=== PATIENT | female | born 1970 | race Caucasian/White ===

== ENCOUNTER 2018-09-28 02:19 | Inpatient (IN) | payer BC ==
[~2018-09-28] VITALS: Ht 177.8 cm; Wt 98.4 kg
[2018-09-28] VITALS (13 sets, daily range): BP systolic 91–142; BP diastolic 51–127
[2018-09-28] MEDS ORDERED: LIDOCAINE 2% IV 100 MG/5ML SYR ONE (10:13)
[2018-09-28] MEDS ORDERED: ROPIVACAINE 0.5% 20 ML VIAL ONE (12:40)
[2018-09-28] MEDS ORDERED: DEXAMETHASONE SOD PHOS 10MG/ML ONE (12:42)
[2018-09-28] MEDS ORDERED: DEXAMETHASONE SOD 4 MG/ML VIAL ONE (12:44)
[2018-09-28] MEDS ORDERED: fentaNYL CITR 250 MCG/5 ML AMP ONE (12:45)
[2018-09-28] MEDS ORDERED: PROPOFOL EMUL(*) 10MG/ML 20 ML 20 ML ONE (12:45)
[2018-09-28] MEDS ORDERED: NORMOSOL R SOLN(*) 1000 ML BAG 1,000 ML IV PRN ×2 (13:00→16:55)
[2018-09-28] MEDS ORDERED: ACETAMINOPHEN 500 MG TAB PO ONE (13:00)
[2018-09-28] MEDS ORDERED: TRANEXAMIC AC 1000 MG/10ML SDV 1,000 MG in DEXTROSE 5% 50 ML BAG 50 ML IV ONE (13:00)
[2018-09-28] MEDS ORDERED: LIDOCAINE/SOD BICARB 8.4% SYR ID ONE (13:00)
[2018-09-28] MEDS ORDERED: CELECOXIB 200 MG CAP PO ONE (13:00)
[2018-09-28] MEDS ORDERED: PREGABALIN 150 MG CAPSULE PO ONE (13:00)
[2018-09-28] MEDS ORDERED: ceFAZolin(*) 2GM/D5W 50ML 50 ML IVPB ONE (13:00)
[2018-09-28] MEDS ORDERED: FAMOTIDINE 20 MG TAB PO ONE (13:00)
[2018-09-28] MEDS ORDERED: MIDAZOLAM 2 MG/2 ML VIAL IVP PRN (13:00)
[2018-09-28] MEDS ORDERED: ROPIVACAINE 0.2% 400 MG/200ML 250 ML CONINFUS ONE (13:00)
[2018-09-28] MEDS ORDERED: ROPIVACAINE/EPI/CLONIDINE/KET 50 ML SYRINGE INJ ONE (13:00)
[2018-09-28] MEDS ORDERED: KETAMINE HCL 200 MG/20 ML MDV ONE ×2 (14:36→16:05)
[2018-09-28] MEDS ORDERED: fentaNYL CITR 100 MCG/2 ML AMP ONE (15:08)
[2018-09-28] MEDS ORDERED: LACTATED RINGER 3000 ML BAG IR ONE (15:30)
[2018-09-28] MEDS ORDERED: NS 0.9% IRRIGATION 1000ML PLCT IR ONE (15:30)
[2018-09-28] MEDS ORDERED: oxyCODONE HCL 5 MG CAP PO PRN (16:55)
[2018-09-28] MEDS ORDERED: MORPHINE 4 MG/ML SDV IVP PRN (16:55)
[2018-09-28] MEDS ORDERED: FLUSH 10 ML SYR IVP PRN (16:55)
[2018-09-28] MEDS ORDERED: ONDANSETRON 4 MG/2 ML VIAL IVP PRN (16:55)
[2018-09-28] MEDS ORDERED: MAGNESIUM HYDROXIDE* 30ML UDCP PO PRN (16:55)
[2018-09-28] MEDS ORDERED: ZOLPIDEM TARTRATE 5 MG TAB PO PRN (16:55)
[2018-09-28] MEDS ORDERED: BISACODYL 10 MG SUPP PR PRN (16:55)
[2018-09-28] MEDS ORDERED: PROMETHAZINE 25 MG/ML 1 ML AMP IVP PRN (16:55)
[2018-09-28] MEDS ORDERED: traMADol 50 MG TAB PO PRN (16:55)
[2018-09-28] MEDS ORDERED: KET10 PO (17:42)
[2018-09-28] MEDS ORDERED: TRAM-420 PO (17:44)
[2018-09-28] MEDS ORDERED: OXYC5CAP21 PO (17:45)
--- NOTE | 2018-09-28 17:53 | RADIOLOGY IMAGING REPORT ---
FACILITY: [facility] - [place] PATIENT NAME: Bridget Vital : 1970 MR: [id number] V: [id number] EXAM DATE: ORDERING PHYSICIAN: EDDIE DYKES TECHNOLOGIST: Location: [facility] Patient: Bridget Vital : 1970 Visit/Account:[id number] Date of Sevice: 09/28/2018 Exam type: KNEE LIMITED RIGHT History: S/P R TKA Comparison: None. Findings: AP and crosstable lateral views of the right knee demonstrate a right knee arthroplasty in good anato shalini alignment. Soft tissue gas projects over the anterior aspect of this postoperative knee IMPRESSION: 1. As above Report Dictated By: Tiana Soto MD at 09/28/2018 5:49 PM Report E-Signed By: Tiana Soto MD at 09/28/2018 5:50 PM WSN:[email or web address]
--- NOTE | 2018-09-28 17:57 | Hospitalist Progress Note ---
Subjective Progress Notes Subjective Patient seen post-operatively. Reviewed PMHx (no significant medical problems) and medications (none). At present she reports doing well. No CP/SOB/N/V. Pain has been well controlled so far. Physical Exam Vital Signs Date Time Temp Pulse Resp B/P (MAP) Pulse Ox O2 Delivery O2 Flow Rate FiO2 09/28/18 17:37 98.0 70 16 109/60 (76) Nasal Cannula 2.0 09/28/18 17:26 99 General Appearance: Alert, Awake Cardiovascular: Regular Rate and Rhythm Respiratory: Clear to Auscultation Assessment and Plan Problems: (1) S/P knee replacement Status: Acute Assessment & Plan: She appears stable post-op. No history of DVT/PE. She will be on aspirin for prophylaxis. YVON BAER MD Sep 28, 2018 17:57
[2018-09-28] MEDS: ACETAMINOPHEN 500 MG TAB PO SCH (18:22)
[2018-09-28] MEDS ORDERED: ASPIRIN 325 MG TAB PO ONE (21:00)
[2018-09-28] MEDS: ceFAZolin(*) 2GM/D5W 50ML 50 ML IVPB SCH (23:13)
[2018-09-28] MEDS ORDERED: NS(*) 0.9% 500 ML BAG 500 ML ONE (23:15)
[2018-09-29] VITALS (7 sets, daily range): BP systolic 95–133; BP diastolic 62–79; Ht 177.8 cm; Wt 98.4 kg
[2018-09-29] MEDS: ACETAMINOPHEN 500 MG TAB PO SCH ×3 (00:34→17:30)
--- NOTE | 2018-09-29 04:04 | OPERATIVE REPORT 1 ---
EVENT DATE: September 28, 2018 SURGEON: Quang Heck MD ANESTHESIOLOGIST: Jamil Carrillo MD ANESTHESIA: Right indwelling adductor canal block, followed by general anesthesia. FURNACE MECHANIC: STEVE Pimentel PREOPERATIVE DIAGNOSIS Right knee degenerative joint disease, status post anterior cruciate ligament reconstruction in 1984, with flexion contracture. POSTOPERATIVE DIAGNOSIS Right knee degenerative joint disease, status post anterior cruciate ligament reconstruction in 1984, with flexion contracture and significant scarring posterolaterally and posteriorly. PROCEDURE PERFORMED Right total knee arthroplasty. IMPLANTS MicroPort Medial-Pivot CS system with a 6 femur, 5 tibia, 12 mm CS insert, 8 x 35 symmetric patella, femur cut 6 degrees valgus, 10 mm. We also utilized two packages of DonJoy [place] Blue cement and ZipLine Wound Closure System and our standard ropivacaine/Toradol cocktail, 50 mL. SPECIMENS None. COMPLICATIONS None. BLOOD LOSS Less than 200 mL. DESCRIPTION OF PROCEDURE Patient received appropriate preoperative antibiotic, was brought to the OR, where Dr. Carrillo performed right adductor canal block followed by general anesthesia. Right thigh tourniquet was placed but was not utilized. Right lower extremity was prepped and draped in the usual sterile fashion. We made a midline incision followed by a medial parapatellar arthrotomy. We noted significant anteromedial osteophytic reaction off the tibial plateau and just lateral to this, in the anterior aspect of the lateral tibial plateau. Significant osteophytes were noted around the distal femur and trochlea and in the notch. Reconstructed ACL was absent. We noted significant scar tissue over the medial region. After the medial parapatellar arthrotomy, we dissected subperiosteally on the medial tibial plateau to the level of the semimembranosus insertion and noted very thickened tissue in this region. Significant fat pad scarring had occurred to the notch, and the fat pad was excised, patella released, and significant spurs here were also removed by rongeur. Significant scarring in the gutter was noted, and thickening in this region, and this region was released. Patella was everted, knee brought up into hyperflexion, and remaining articular cartilage was removed from the distal femoral condyles by sagittal saw. The PCL was released subperiosteally by Bovie. Step-cut drill was utilized to broach the distal femoral canal. We placed our intramedullary femoral guide, setting our cutting block up at 6 degrees valgus, 10 mm. Cut was made with care taken to protect the soft tissues. A 3-degree external rotation guide and sizer was then placed, referencing off the anterior flange, epicondyles and posterior condyles, and 3-degree external rotation holes were drilled. We sized the femur to a 6. A 4-in-1 cutting block was then placed, and we placed our Z-retractors to protect the soft tissue, and we made our four cuts. We then brought the tibia anteriorly on the femur with appropriate retractors. Step-cut drills were utilized to broach the tibial canal. We then placed our intramedullary tibial guide and, referencing 4 mm off the significant slope and loss of articular cartilage on the lateral tibial plateau, and referencing from rotation, we pinned our block into place, placed appropriate retractors and made our cut. We noted that the size was a #5. We removed osteophytes that were further noted posteriorly at the tibial plateau and medially with a rongeur. We noted the ACL tunnel. This was debrided of the soft tissue utilizing rongeur, pickups and Bovie. We then removed the stump of the ACL and PCL as well as the medial and lateral meniscus by Meseret. We removed significant osteophytes posteriorly with a curved osteophyte, elevated the capsule with a Marroquin elevator. We then placed our #5 tibial base plate, referencing 3 degrees rotation, and pinned this in place. We placed a 10 mm insert and placed our femur. As we came up into extension, we noted that it was still fairly tight, so we completely released the insertion of the IT band, but off of Yohana tubercle, we still noted we were tight. The femur and tibial insert were removed. We evaluated the popliteus tendon, and it was significantly calcified and hardened. It was impinging posterolaterally, and this was released carefully by Meseret. We then placed a 12 mm insert and our #5 femur, and we achieved full extension and flexion to 125, limited only by body habitus. She was stable to varus and valgus stress and had a good endpoint at anterior drawer. We brought the knee into full extension. The patella was sized to a depth of 20 mm. We used a 6 mm guide, cutting this down to 14 mm. A peg hole guide was positioned inferiorly and medially. The peg holes were drilled, and this accepted an 8 x 35 trial. We then brought the knee up into flexion, drilled out peg holes for the femur, cut for our trochlear chip, placed this. Again, we had the aforementioned range of motion and stability, and patella tracked well. We then removed the trial patella, femur and tibial insert and placed appropriate retractors to expose the tibial base plate. We placed our keel tower, which was cut, reamed and punched. This instrumentation was then removed. A bone plug was placed in the distal femur, and we brought the knee out to full extension. We copiously irrigated with pulsed lavage while we mixed two packages of DonJoy [place] Blue cement. We then injected 10 mL of our cocktail into the posterior capsule, brought the knee up into appropriate position. Starting at the tibia, we cemented this into place, followed by our 12 mm CS insert, then our #5 femur. Excess cement was removed. The knee was brought out to full extension with axial compression while we cemented the patella. We injected the remaining cocktail into the quad mechanism. After 12- 1/2 minutes, the cement had secured, and again we had the aforementioned range of motion and stability. We copiously irrigated once again, closed the arthrotomy at 30 degrees with #2 Vicryl in [id number] suture fashion, followed by 2-0 Vicryl for the subcutaneous tissues, then, with the knee bent to 45 degrees, our ZipLine Wound Closure System. Dressing was applied. Patient was extubated and taken to Recovery in stable condition. Hospitalist team will be consulted for medical management and anticoagulation, PT for rehab. YANNA
[2018-09-29] MEDS: ceFAZolin(*) 2GM/D5W 50ML 50 ML IVPB SCH ×2 (05:31→14:03)
[2018-09-29] MEDS: ASPIRIN 325 MG TAB PO SCH (08:56)
--- NOTE | 2018-09-29 09:22 | NUR ---
Physical Therapy Impression PT eval and treatment completed. Pt fit with CPM last evening. Pt notes that she has been ambulating to/from BR with nursing as needed and tolerated ambulation x 150' with FWW and CGA in hallway with PT. Pt educated on self progression with flexion on CPM as tolerated. Physical Therapy Goals 1. Pt to be modified indep/SBA with bed mobility and sup<>sit trnsfrs 2. Pt to be modified indep/SBA with sit<>stand trnsfrs 3. Pt to be modified indep with FWW for ambulation x 150' 4. Pt to be SBA/CGA for up/down 4 steps with rail Patient's Goals
[2018-09-29] MEDS ORDERED: HYDROCORTISONE 1% CR 28.35 GM TP PRN (09:55)
--- NOTE | 2018-09-29 10:00 | Hospitalist Progress Note ---
Subjective Progress Notes Subjective She was admitted after knee replacement. She has complaints of rash to left upper arm. She reports she was itching prior to admission, but the blood pressure cuff exacerbated the rash. Patient Complains of: Cardiovascular: No: Chest Pain Respiratory: No: Shortness of Breath Physical Exam Vital Signs Date Time Temp Pulse Resp B/P (MAP) Pulse Ox O2 Delivery O2 Flow Rate FiO2 09/29/18 07:52 98 Nasal Cannula 1.0 09/29/18 07:26 99.0 77 16 107/74 (85) Intake and Output 09/29/18 01:00 Intake Total 1615 ml Output Total 100 ml Balance 1515 ml Intake IV Total 1615 ml Output Estimated Blood Loss 100 ml # Voids 1 General Appearance: Alert, Awake, No Acute Distress, Afebrile Neuro: No Gross deficits Cardiovascular: Regular Rate and Rhythm Respiratory: No Respiratory Distress, Clear to Auscultation GI: Soft and Non-Tender Extremities: Warm, Perfused; No Edema Integumentary: Other (rash to left dorsal upper arm, reddened, appears dry) Psych: Alert & Oriented X3, Appropriate Mood & Affect Assessment and Plan Problems: (1) S/P knee replacement Status: Acute Assessment & Plan: She appears stable post-op. No history of DVT/PE. She will be on aspirin for prophylaxis. (2) Rash Status: Acute Assessment & Plan: She has rash to left upper arm, appears dry and itchy, exacerbated by BP cuff. Will place on Claritin and hydrocortisone cream. Continue to monitor. Exam Sepsis Risk: No Definite Risk Problem Qualifiers (1) S/P knee replacement: Laterality: right Qualified Codes: Z96.651 - Presence of right artificial knee joint PRIMO PATEL Sep 29, 2018 10:00
[2018-09-29] MEDS: LORATADINE 10 MG TAB PO SCH (10:52)
--- NOTE | 2018-09-29 15:25 | NUR ---
Physical Therapy Impression PT goals met with afternoon visit. Pt demos modified indep with functional mobility including ambulation for household distances and up/down 8 steps with rail and SBA/Modified indep. Pt anticipates d/c tomorrow and will schedule with out pt PT services for next week. Out pt clinic of pt's choice requires credit card information in order to hold an appointment time, thus pt will need to make this appointment and has been informed of this. Physical Therapy Goals 1. Pt to be modified indep/SBA with bed mobility and sup<>sit trnsfrs 2. Pt to be modified indep/SBA with sit<>stand trnsfrs 3. Pt to be modified indep with FWW for ambulation x 150' 4. Pt to be SBA/CGA for up/down 4 steps with rail Patient's Goals
[2018-09-29] MEDS: KETOROLAC TROM 10MG TAB PO PRN (23:11)
[2018-09-30] MEDS: ACETAMINOPHEN 500 MG TAB PO SCH ×3 (00:29→15:17)
[2018-09-30 04:31] VITALS: BP 113/73
[2018-09-30] MEDS ORDERED: ASPI-757 PO (07:51)
[2018-09-30 08:44] VITALS: BP 112/74
[2018-09-30] MEDS: ASPIRIN 325 MG TAB PO SCH (08:46)
[2018-09-30] MEDS: LORATADINE 10 MG TAB PO SCH (08:47)
[2018-09-30] MEDS ORDERED: HYDROCORTISONE 1% CR 28.35 GM TP SCH (09:00)
[2018-09-30] MEDS ORDERED: KET10 PO (09:00)
[2018-09-30] MEDS ORDERED: TRAM-420 PO (09:01)
--- NOTE | 2018-09-30 10:40 | Hospitalist Progress Note ---
Subjective Progress Notes Subjective She has complaints of pain to the surgical site. She had no acute events overnight. Patient Complains of: Cardiovascular: No: Chest Pain Respiratory: No: Shortness of Breath Physical Exam Vital Signs Date Time Temp Pulse Resp B/P (MAP) Pulse Ox O2 Delivery O2 Flow Rate FiO2 09/30/18 08:44 99.0 75 16 112/74 (87) 98 Room Air 09/29/18 07:52 1.0 Intake and Output 09/30/18 07:00 Intake Total 440 ml Balance 440 ml Intake Oral 440 ml # Voids 1 General Appearance: Alert, Awake, No Acute Distress, Afebrile Neuro: No Gross deficits Cardiovascular: Regular Rate and Rhythm Respiratory: No Respiratory Distress, Clear to Auscultation GI: Soft and Non-Tender Psych: Alert & Oriented X3, Appropriate Mood & Affect Assessment and Plan Problems: (1) S/P knee replacement Status: Acute Assessment & Plan: She appears stable post-op. No history of DVT/PE. She will be on aspirin for prophylaxis. (2) Rash Status: Acute Assessment & Plan: She has rash to left upper arm, appears dry and itchy, exacerbated by BP cuff. Will place on Claritin and hydrocortisone cream. Continue to monitor. Exam Sepsis Risk: No Definite Risk Problem Qualifiers (1) S/P knee replacement: Laterality: right Qualified Codes: Z96.651 - Presence of right artificial knee joint PRIMO PATELP Sep 30, 2018 10:40
[2018-09-30 14:49] VITALS: BP 112/68
[2018-09-30] MEDS: KETOROLAC TROM 10MG TAB PO PRN (15:17)
== END 2018-09-30 16:00 | disposition home or self-care (01) | DRG 470 ==
LOC: OR 02:19 → MED 17:26 → OBSVTOIN 17:26 → INTOOBSV 17:26
PROVIDERS: ADMIT Orthopaedic Surgery; ATTEND Orthopaedic Surgery
PROC: 0SRC0J9 Replacement of Right Knee Joint with Synthetic Substitute, Cemented, Open Approach (ICD-10-PCS; principal; 2018-09-28 14:16)
DX: M17.0 Bilateral primary osteoarthritis of knee (principal); M24.561 Contracture, right knee; M25.761 Osteophyte, right knee; R21 Rash and other nonspecific skin eruption; E66.9 Obesity, unspecified; Z68.31 Body mass index [BMI] 31.0-31.9, adult
CPT/HCPCS: 36415; 76942; 85610; 86850; 86900; 86901; 97161; C1713; C1776; J0690; J1100; J2001; J2250; J2704; J2795; J3010; J3490; J7040; J7060

== ENCOUNTER 2018-12-21 01:26 | Inpatient (IN) | payer BC ==
[2018-09-29 13:35] VITALS: Ht 180.3 cm; Wt 97.5 kg
[2018-12-20 13:58] LABS: INR 1.07
[~2018-12-21] VITALS: Ht 180.3 cm; Wt 97.5 kg
[2018-12-21] VITALS (13 sets, daily range): BP systolic 97–128; BP diastolic 61–111
[~2018-12-21 01:26] MED LIST: ASPI-757 PO; CHOL10005 PO; KET10 PO; OXYC5CAP21 PO; TRAM-420 PO; [UNRECOGNIZED DRUG - REMARK]; protandim PO
[2018-12-21] MEDS ORDERED: ROPIVACAINE 0.5% 20 ML VIAL ONE (08:04)
[2018-12-21] MEDS ORDERED: DEXAMETHASONE SOD PHOS 10MG/ML ONE (08:04)
[2018-12-21] MEDS ORDERED: DEXAMETHASONE SOD 4 MG/ML VIAL ONE (08:07)
[2018-12-21] MEDS ORDERED: fentaNYL CITR 250 MCG/5 ML AMP ONE (08:08)
[2018-12-21] MEDS ORDERED: LIDOCAINE 2% IV 100 MG/5ML SYR ONE (08:09)
[2018-12-21] MEDS ORDERED: PROPOFOL EMUL(*) 10MG/ML 20 ML 20 ML ONE (08:09)
[2018-12-21] MEDS ORDERED: CELECOXIB 200 MG CAP PO ONE (08:30)
[2018-12-21] MEDS ORDERED: NORMOSOL R SOLN(*) 1000 ML BAG 1,000 ML IV PRN ×2 (08:30→12:30)
[2018-12-21] MEDS ORDERED: FAMOTIDINE 20 MG TAB PO ONE (08:30)
[2018-12-21] MEDS ORDERED: ROPIVACAINE/EPI/CLONIDINE/KET 50 ML SYRINGE INJ ONE (08:30)
[2018-12-21] MEDS ORDERED: ACETAMINOPHEN 500 MG TAB PO ONE (08:30)
[2018-12-21] MEDS ORDERED: PREGABALIN 150 MG CAPSULE PO ONE (08:30)
[2018-12-21] MEDS ORDERED: ceFAZolin(*) 2GM/D5W 50ML 50 ML IVPB ONE (08:30)
[2018-12-21] MEDS ORDERED: LIDOCAINE/SOD BICARB 8.4% SYR ID ONE (08:30)
[2018-12-21] MEDS ORDERED: MIDAZOLAM 2 MG/2 ML VIAL IVP PRN (08:30)
[2018-12-21] MEDS ORDERED: TRANEXAMIC AC 1000 MG/10ML SDV 1,000 MG in DEXTROSE 5% 50 ML BAG 50 ML IV ONE (10:25)
[2018-12-21] MEDS ORDERED: ONDANSETRON 4 MG/2 ML VIAL ONE (10:25)
[2018-12-21] MEDS ORDERED: KETAMINE HCL 200 MG/20 ML MDV ONE ×2 (10:26→11:23)
[2018-12-21] MEDS ORDERED: fentaNYL CITR 100 MCG/2 ML AMP ONE (11:24)
[2018-12-21] MEDS ORDERED: ROPIVACAINE 0.2% 400 MG/200ML 250 ML CONINFUS ONE (11:55)
[2018-12-21] MEDS ORDERED: PROMETHAZINE 25 MG/ML 1 ML AMP IVP PRN (12:30)
[2018-12-21] MEDS ORDERED: MORPHINE 4 MG/ML SDV IVP PRN (12:30)
[2018-12-21] MEDS ORDERED: KETOROLAC TROM 10MG TAB PO PRN (12:30)
[2018-12-21] MEDS ORDERED: BISACODYL 10 MG SUPP PR PRN (12:30)
[2018-12-21] MEDS ORDERED: MAGNESIUM HYDROXIDE* 30ML UDCP PO PRN (12:30)
[2018-12-21] MEDS ORDERED: ONDANSETRON 4 MG/2 ML VIAL IVP PRN (12:30)
[2018-12-21] MEDS ORDERED: FLUSH 10 ML SYR IVP PRN (12:30)
[2018-12-21] MEDS ORDERED: ZOLPIDEM TARTRATE 5 MG TAB PO PRN (12:30)
--- NOTE | 2018-12-21 13:31 | Hospitalist Progress Note ---
Subjective Progress Notes Subjective Patient seen post-op. She is known to our service from her previous hospitalization in September 2018. She has no significant PMHx. She did very well with her previous knee replacement. She has no current complaints. No CP/SOB/nausea. Physical Exam Vital Signs Date Time Temp Pulse Resp B/P (MAP) Pulse Ox O2 Delivery O2 Flow Rate FiO2 12/21/18 13:05 97.9 61 16 121/67 (85) 92 Nasal Cannula 2.0 General Appearance: Alert, Awake Cardiovascular: Regular Rate and Rhythm Respiratory: Clear to Auscultation Assessment and Plan Problems: (1) S/P knee replacement Status: Acute Assessment & Plan: She appears to have tolerated OR/anesthesia very well. She has no history of DVT/PE. She did well with the aspirin with her previous knee replacement. Will place her on aspirin 325mg daily for 30-35 days for prophylaxis. Problem Qualifiers (1) S/P knee replacement: Laterality: left Qualified Codes: Z96.652 - Presence of left artificial knee joint YVON BAER MD Dec 21, 2018 13:31
--- NOTE | 2018-12-21 13:41 | OPERATIVE REPORT 1 ---
EVENT DATE: December 21, 2018 SURGEON: Quang Heck MD ANESTHESIOLOGIST: Jamil Carrillo MD ANESTHESIA: Left adductor block indwelling followed by general. We also utilized 50 cc of our standard Toradol/ropivacaine cocktail. GARNETT MACHINE OPERATOR: Singh Broussard PA-C PREOPERATIVE DIAGNOSIS Left knee degenerative joint disease. POSTOPERATIVE DIAGNOSIS Left knee degenerative joint disease. PROCEDURE PERFORMED Left total knee arthroplasty. IMPLANTS USED MicroPort medial pivot CS system with a 6 femur, 5 tibia, 12 mm CS insert, 8 x 32 symmetric patella, and femur was cut 6-degrees valgus 10 mm. I also utilized two packages of DonJoy [place] Blue cement and ZipLine wound closure system. SPECIMENS None. COMPLICATIONS None. ESTIMATED BLOOD LOSS Less than 200 cc. DESCRIPTION OF PROCEDURE The patient received appropriate preoperative antibiotics, was brought to the OR where Dr. Carrillo performed a left adductor block, followed by general anesthesia. The left thigh tourniquet was placed but was not utilized. The left lower extremity was prepped and draped in the usual sterile fashion. A midline incision was made, followed by medial parapatellar arthrotomy. Dissection was carried out subperiosteally the medial tibial plateau to the level of the semimembranosus insertion. Laterally the fat pad was excised, the patella released and everted. The knee brought up into hyperflexion. ACL and PCL were released subperiosteally by Bovie. The remaining articular cartilage was removed from the distal femoral condyles by sagittal saw. Step-cut drill was utilized to broach the femoral canal then we placed an intramedullary distal femoral cutting guide, setting this up at 10 mm, 6-degrees valgus. With care taken to protect the soft tissues the cut was made. 3-degree external rotation sizing guide was in position, referencing off the anterior flange, epicondyles, posterior condyles. This was sided to a #6 and holes drilled. Four-in-one cutting block was positioned, followed by Z-retractors to protect the soft tissues and the four cuts were made. The tibia was brought anteriorly in the femur. With appropriate retractors were noted significant posteromedial tibial plateau osteophyte going superiorly. The tibial canal was broached with the step-cut drill, followed by placement of intramedullary alignment mary alice and we set up the cutting block at 10 mm from the least involved tibial plateau into rotation. The block was pinned in place, retractors positioned, and a cut made. This was sized to a #5. We then removed the stump of the ACL and PCL, medial and lateral meniscus by Meseret. Osteophytes were removed posteriorly with a curved osteotome, followed by elevation of the capsule with a Marroquin elevator. The tibial osteophyte posteriorly was removed with the rongeur. We then placed our trial tibial baseplate referencing the previous rotation, pinned this into place and then a 10 mm, followed by a 12 mm CS inserted and our femur. We achieved full extension, flexion to about 140-degrees range of motion, stability to varus and valgus stress, and satisfactory anterior drawer at 90-degrees. The knee was brought into full extension. The patella was measured to be 21 mm in depth. We placed our 6 mm guide, cut our patella and this accepted an 8 x 32 peg hole trial which positioned easily and the peg holes drilled and we placed our patella. We then drilled for our femoral pegs. These were placed. We cut for a trochlear chip and this was placed. Again, we had the aforementioned range of motion, stability and patella tracked well. The patella, femur, and tibial insert was removed. Appropriate retractors were placed and we placed our tower for our keel. This was cut, reamed, and punched. Instrumentation was removed. Bone pug placed in the distal femur and we mixed 2 packs of DonJoy [place] Blue cement while we copiously irrigated by pulse lavage and then placed 10 cc of our cocktail in the posterior capsule. The knee was positioned and starting with the tibia, this was cemented in place, followed by our 12 mm CS inserted, then our 6 femur. Excess cement was removed. The knee brought into full extension with axial compression while we cemented the patella. After 12 minutes the cement had cured. Again, we had the above range of motion and stability. While waiting for the cement to cure, we injected the remaining 40 cc of our cocktail in the distal quads. The wound was again irrigated. We placed the knee at 30-degrees, closed the arthrotomy with #2 Vicryl, followed by 2-0 Vicryl for subcutaneous tissues. We cleaned the wounds. We placed the knee at 45-degrees. Placed our ZipLine wound closure system. We placed a compressive dressing. The patient was extubated and taken to recovery in stable condition. Hospitalist team consulted for medical management and anticoagulation. Physical Therapy for rehab. YANNA
[2018-12-21] MEDS: traMADol 50 MG TAB PO PRN (15:39)
[2018-12-21] MEDS: ACETAMINOPHEN 500 MG TAB PO SCH (15:40)
--- NOTE | 2018-12-21 16:20 | NUR ---
Physical Therapy Impression PT eval completed with pt alert and agreeable to attempt ambulation. Pt tolerated side stepping at EOB and then was agreeable to attempt ambulation to bathroom. Pt took 3 steps away from the bed and immediately felt dizzy and unwell, noting that she needed to sit down again. Pt was able to safely back up to bed prior to sitting down and was returned quickly to supine position. BP was somewhat lower than previous reading, however, pt did demonstrate symptomology consistent with orthostatic hypotension, which resolved with supine positioning. Pt encouraged to use BSC with nursing for first toileting transfer and then attempt ambulation to/from BR later this evening if this goes well. Physical Therapy Goals 1. Pt to be modified indep with supine to/from sit transfers 2. Pt to be SBA/Modified indep with sit to/from stand transfers 3. Pt to be SBA/Modified indep for ambulation x 100' with least restrictive device 4. Pt to emmanuel up/down 4 steps with rail to access home with SBA/Mod Indep Patient's Goals
--- NOTE | 2018-12-21 16:27 | RADIOLOGY IMAGING REPORT ---
FACILITY: [facility] - [place] PATIENT NAME: Bridget Vital : 1970 MR: [id number] V: [id number] EXAM DATE: ORDERING PHYSICIAN: EDDIE DYKES TECHNOLOGIST: Location: [facility] [place] Patient: Bridget Vital : 1970 Visit/Account:[id number] Date of Sevice: 12/21/2018 Exam type: KNEE LIMITED LEFT History: POST OP Comparison: None. Findings: Two views of the left knee demonstrate a left knee arthroplasty in good anatomic alignment. Soft tis simón gas projects over the anterior aspect of this postoperative knee IMPRESSION: 1. As above Report Dictated By: Tiana Soto MD at 12/21/2018 4:21 PM Report E-Signed By: Tiana Soto MD at 12/21/2018 4:22 PM WSN:[email or web address]
[2018-12-21] MEDS ORDERED: NS(*) 0.9% 500 ML BAG 500 ML ONE (17:10)
[2018-12-21] MEDS: ceFAZolin(*) 2GM/D5W 50ML 50 ML IVPB SCH (17:22)
[2018-12-21] MEDS ORDERED: ASPIRIN 325 MG TAB PO ONE (21:00)
[2018-12-22] MEDS: ceFAZolin(*) 2GM/D5W 50ML 50 ML IVPB SCH ×2 (00:15→08:50)
[2018-12-22] MEDS: traMADol 50 MG TAB PO PRN ×4 (00:16→23:11)
[2018-12-22] MEDS: ACETAMINOPHEN 500 MG TAB PO SCH ×3 (00:16→15:48)
[2018-12-22 03:52] VITALS: BP 97/61
[2018-12-22 07:24] VITALS: BP 102/69
[2018-12-22] MEDS: ASPIRIN 325 MG TAB PO SCH (08:50)
[2018-12-22] MEDS: POLYETHYLENE GLYCOL 17 GM PKT PO SCH (08:50)
[2018-12-22] MEDS: DOCUSATE SODIUM 100 MG CAP PO SCH ×2 (08:50→20:31)
--- NOTE | 2018-12-22 09:11 | Hospitalist Progress Note ---
Subjective Progress Notes Subjective She was admitted s/p knee replacement. She had no acute events overnight. Patient Complains of: Cardiovascular: No: Chest Pain Respiratory: No: Shortness of Breath Physical Exam Vital Signs Date Time Temp Pulse Resp B/P (MAP) Pulse Ox O2 Delivery O2 Flow Rate FiO2 12/22/18 07:24 98.1 71 18 102/69 (80) 95 Nasal Cannula 1.0 Intake and Output 12/22/18 01:00 Intake Total 2140 ml Output Total 100 ml Balance 2040 ml Intake Oral 540 ml IV Total 1600 ml Output Estimated Blood Loss 100 ml # Voids 3 General Appearance: Alert, Awake, No Acute Distress, Afebrile Neuro: No Gross deficits Cardiovascular: Regular Rate and Rhythm Respiratory: No Respiratory Distress, Clear to Auscultation GI: Soft and Non-Tender Psych: Alert & Oriented X3, Appropriate Mood & Affect Assessment and Plan Problems: (1) S/P knee replacement Status: Acute Assessment & Plan: She appears to have tolerated OR/anesthesia very well. She has no history of DVT/PE. She did well with the aspirin with her previous knee replacement. Will place her on aspirin 325mg daily for 30-35 days for prophylaxis. Exam Sepsis Risk: No Definite Risk Problem Qualifiers (1) S/P knee replacement: Laterality: left Qualified Codes: Z96.652 - Presence of left artificial knee joint PRIMO PATEL LEAD DATA ENTRY OPERATOR Dec 22, 2018 09:11
--- NOTE | 2018-12-22 10:30 | NUR ---
Physical Therapy Impression Pt tolerated 150' ambulation distance, however, just prior to reaching her room, pt noted extreme fatigue and required a sitting rest break. BP noted to be lower than earlier today. Pt returned by W/C to bed and transferred to supine immediately, with improvement in syptoms. Pt encouraged to have W/C follow with any distance ambulation for safety at this time. Physical Therapy Goals 1. Pt to be modified indep with supine to/from sit transfers 2. Pt to be SBA/Modified indep with sit to/from stand transfers 3. Pt to be SBA/Modified indep for ambulation x 100' with least restrictive device 4. Pt to emmanuel up/down 4 steps with rail to access home with SBA/Mod Indep Patient's Goals
[2018-12-22 15:28] VITALS: BP 113/72
--- NOTE | 2018-12-22 18:05 | NUR ---
Physical Therapy Impression PT goals met with completion of stairs and from a mobility stand point, pt is ready for d/c when medically appropriate. Physical Therapy Goals 1. Pt to be modified indep with supine to/from sit transfers 2. Pt to be SBA/Modified indep with sit to/from stand transfers 3. Pt to be SBA/Modified indep for ambulation x 100' with least restrictive device 4. Pt to emmanuel up/down 4 steps with rail to access home with SBA/Mod Indep Patient's Goals
[2018-12-22 19:09] VITALS: BP 104/74
[2018-12-22] MEDS: oxyCODONE HCL 5 MG CAP PO PRN (22:09)
[2018-12-22 22:11] VITALS: BP 119/71
[2018-12-23] MEDS: ACETAMINOPHEN 500 MG TAB PO SCH ×2 (00:25→09:41)
[2018-12-23 02:11] VITALS: BP 118/73
[2018-12-23] MEDS: oxyCODONE HCL 5 MG CAP PO PRN ×3 (02:14→11:29)
[2018-12-23 06:49] VITALS: BP 115/72
--- NOTE | 2018-12-23 08:35 | NUR ---
Physical Therapy Impression Home with CPM. Pt notes increased pain through the night, which is now better controlled. Pt indicates no further questions or concerns and PT goals are met. Pt to d/c home later today and will follow up with out pt PT as scheduled. Physical Therapy Goals 1. Pt to be modified indep with supine to/from sit transfers 2. Pt to be SBA/Modified indep with sit to/from stand transfers 3. Pt to be SBA/Modified indep for ambulation x 100' with least restrictive device 4. Pt to emmanuel up/down 4 steps with rail to access home with SBA/Mod Indep Patient's Goals
--- NOTE | 2018-12-23 08:53 | Hospitalist Progress Note ---
Subjective Progress Notes Subjective She was admitted s/p knee replacement. She had no acute events overnight. Patient Complains of: Cardiovascular: No: Chest Pain Respiratory: No: Shortness of Breath Physical Exam Vital Signs Date Time Temp Pulse Resp B/P (MAP) Pulse Ox O2 Delivery O2 Flow Rate FiO2 12/23/18 07:49 94 Room Air 12/23/18 06:49 98.3 65 115/72 (86) 12/23/18 02:11 14 0.5 Intake and Output 12/23/18 01:00 Intake Total 1440 ml Balance 1440 ml Intake Oral 1440 ml # Voids 4 General Appearance: Alert, Awake, No Acute Distress, Afebrile Cardiovascular: Regular Rate and Rhythm Respiratory: No Respiratory Distress, Clear to Auscultation GI: Soft and Non-Tender Psych: Alert & Oriented X3, Appropriate Mood & Affect Assessment and Plan Problems: (1) S/P knee replacement Status: Acute Assessment & Plan: She appears to have tolerated OR/anesthesia very well. She has no history of DVT/PE. She did well with the aspirin with her previous knee replacement. Will place her on aspirin 325mg daily for 30-35 days for prophylaxis. Exam Sepsis Risk: No Definite Risk Problem Qualifiers (1) S/P knee replacement: Laterality: left Qualified Codes: Z96.652 - Presence of left artificial knee joint PRIMO PATEL [employer] MA[employer]GER Dec 23, 2018 08:53
[2018-12-23] MEDS: POLYETHYLENE GLYCOL 17 GM PKT PO SCH (09:41)
[2018-12-23] MEDS: ASPIRIN 325 MG TAB PO SCH (09:41)
[2018-12-23] MEDS: DOCUSATE SODIUM 100 MG CAP PO SCH (09:41)
[2018-12-23] MEDS: traMADol 50 MG TAB PO PRN (09:42)
== END 2018-12-23 11:45 | disposition home or self-care (01) | DRG 470 ==
LOC: OR 01:26 → MED 13:05 → OBSVTOIN 13:05
PROVIDERS: ADMIT Orthopaedic Surgery; ATTEND Orthopaedic Surgery
PROC: 0SRD0J9 Replacement of Left Knee Joint with Synthetic Substitute, Cemented, Open Approach (ICD-10-PCS; principal; 2018-12-21 10:10)
DX: M17.12 Unilateral primary osteoarthritis, left knee (principal); M25.762 Osteophyte, left knee; Z68.30 Body mass index [BMI] 30.0-30.9, adult; Z96.651 Presence of right artificial knee joint; E66.9 Obesity, unspecified
CPT/HCPCS: 36415; 76942; 85610; 86850; 86900; 86901; 97161; C1713; C1776; J0690; J1100; J2001; J2250; J2405; J2704; J2795; J3010; J3490; J7060